=== PATIENT | female | born 1945 | race Caucasian/White ===

== ENCOUNTER 2018-01-19 03:59 | Outpatient (CLI) | payer MEDICARE, BC, SELFPAY ==
[2018-01-19 13:45] LABS: Abs Immature Grans 0.01 k/cumm (0.0-0.09); Absolute Basophil Count 0.03 k/cumm (0.0-0.2); Absolute Eosinophil Count 0.13 k/cumm (0.0-0.7); Absolute Lymphocyte Count 0.97 k/cumm (1.2-3.4); Absolute Monocyte Count 0.64 k/cumm (0.11-0.7); Absolute Neutrophil Count 2.41 k/cumm (1.2-6.7); Basophils % 0.7; Eosinophils % 3.1; HGB 11.7 g/dL (12.0-15.5); Immature Grans % 0.2; Lymphocytes % 23.2; Mean Corp. HGB Concentration 33.4 g/dL (32.0-36.0); Mean Corpuscular Hemoglobin 34.6 pg (27.0-33.0); Mean Corpuscular Volume 103.6 fL (80-95); Mean Platelet Volume 9.7 fL (8.0-11.0); Monocytes % 15.3; Neutrophils % 57.5; RBC 3.38 m/cumm (4.00-5.20); RBC Distribution Width 14.2 % (11.7-14.6); White Blood Cell Count 4.19 k/cumm (4.4-10.8)
[2018-01-19 13:59] LABS: ALT 27 U/L (12-78); AST 28 U/L (15-37); Albumin 3.3 g/dL (3.4-5.0); Alkaline Phosphatase 91 U/L (46-116); Anion Gap 7.3 mmol/L (3-11); BUN 22 mg/dL (7-18); Bilirubin, Total 2.3 mg/dL (0.2-1.0); CO2 26.7 mmol/L (21.0-32.0); CREATININE 0.89 mg/dL (0.55-1.02); Calcium 8.7 mg/dL (8.5-10.1); Chloride 107 mmol/L (98-107); Glucose 92 mg/dL (70-100); Potassium 3.8 mmol/L (3.5-5.1); Sodium 141 mmol/L (136-145); Total Protein 6.5 g/dL (6.4-8.2)
[2018-01-19 14:14] LABS: Platelet Count 105 x1000/uL (130-400)
[2018-01-20 09:38] LABS: CEA 3.4 ng/ml
== END 2018-01-19 04:00 ==
PROVIDERS: PCP Internal Medicine; Visit Provider Internal Medicine Hematology & Oncology
DX: C20 Malignant neoplasm of rectum (principal)
CPT/HCPCS: 36415; 80053; 82378; 85025

== ENCOUNTER 2018-08-18 10:33 | Outpatient (CLI) | payer MEDICARE, BC, SELFPAY ==
[2018-08-18 11:15] LABS: Abs Immature Grans 0.01 k/cumm (0.0-0.09); Absolute Basophil Count 0.03 k/cumm (0.0-0.2); Absolute Eosinophil Count 0.11 k/cumm (0.0-0.7); Absolute Lymphocyte Count 1.02 k/cumm (1.2-3.4); Absolute Monocyte Count 0.67 k/cumm (0.11-0.7); Absolute Neutrophil Count 2.24 k/cumm (1.2-6.7); Basophils % 0.7; Eosinophils % 2.7; HCT 37.3 % (36.0-46.0); HGB 12.4 g/dL (12.0-15.5); Immature Grans % 0.2; Mean Corp. HGB Concentration 33.2 g/dL (32.0-36.0); Mean Corpuscular Hemoglobin 33.8 pg (27.0-33.0); Mean Corpuscular Volume 101.6 fL (80-95); Mean Platelet Volume 9.6 fL (8.0-11.0); Monocytes % 16.4; Platelet Count 102 x1000/uL (130-400); RBC 3.67 m/cumm (4.00-5.20); RBC Distribution Width 14.9 % (11.7-14.6); White Blood Cell Count 4.08 k/cumm (4.4-10.8)
[2018-08-18 11:34] LABS: ALT 35 U/L (12-78); AST 39 U/L (15-37); Albumin 3.6 g/dL (3.4-5.0); Alkaline Phosphatase 100 U/L (46-116); Anion Gap 7.5 mmol/L (3-11); BUN 26 mg/dL (7-18); Bilirubin, Total 1.6 mg/dL (0.2-1.0); CO2 28.5 mmol/L (21.0-32.0); CREATININE 0.85 mg/dL (0.55-1.02); Calcium 9.5 mg/dL (8.5-10.1); Chloride 106 mmol/L (98-107); Glucose 96 mg/dL (70-100); Potassium 4.2 mmol/L (3.5-5.1); Sodium 142 mmol/L (136-145); Total Protein 6.9 g/dL (6.4-8.2)
[2018-08-21 10:19] LABS: CEA 3.2 ng/ml
== END 2018-08-18 10:53 ==
PROVIDERS: PCP Internal Medicine; Visit Provider Internal Medicine Hematology & Oncology
DX: C20 Malignant neoplasm of rectum (principal)
CPT/HCPCS: 36415; 80053; 82378; 85025

== ENCOUNTER 2018-10-09 16:06 | Outpatient (REF) | payer MEDICARE, BC, SELFPAY ==
[2018-10-09 20:39] LABS: BUN 25 mg/dL (7-18); CREATININE 0.89 mg/dL (0.55-1.02); Calcium 9.1 mg/dL (8.5-10.1); Chloride 107 mmol/L (98-107); Glucose 98 mg/dL (70-100); LDL CHOLESTEROL 63 mg/dL (<100); Magnesium 1.8 mg/dL (1.8-2.4); Potassium 3.8 mmol/L (3.5-5.1); Sodium 143 mmol/L (136-145); TSH 1.29 uIU/mL (0.358-3.74)
[2018-10-09 20:40] LABS: Troponin I < 0.02 ng/mL (0.00-0.06)
== END 2018-10-09 16:26 ==
LOC: NCHCN 16:06
PROVIDERS: PCP Internal Medicine; Visit Provider Internal Medicine
DX: R07.9 Chest pain, unspecified (principal); R60.9 Edema, unspecified; H93.13 Tinnitus, bilateral
CPT/HCPCS: 80048; 83721; 83735; 84443; 84484

== ENCOUNTER 2018-11-28 00:43 | Outpatient (CLI) | payer MEDICARE, BC, SELFPAY ==
[2018-11-28 09:14] LABS: Absolute Basophil Count 0.01 k/cumm (0.0-0.2); Absolute Eosinophil Count 0.04 k/cumm (0.0-0.7); Absolute Lymphocyte Count 0.46 k/cumm (1.2-3.4); Absolute Monocyte Count 0.53 k/cumm (0.11-0.7); Basophils % 0.3; Eosinophils % 1.3; HCT 34.1 % (36.0-46.0); HGB 10.9 g/dL (12.0-15.5); Lymphocytes % 14.6; Mean Corpuscular Hemoglobin 33.2 pg (27.0-33.0); Mean Platelet Volume 9.9 fL (8.0-11.0); Monocytes % 16.9; Neutrophils % 66.9; RBC 3.28 m/cumm (4.00-5.20); RBC Distribution Width 14.9 % (11.7-14.6); White Blood Cell Count 3.14 k/cumm (4.4-10.8)
[2018-11-28 09:21] LABS: ALT 48 U/L (12-78); AST 53 U/L (15-37); Albumin 3.4 g/dL (3.4-5.0); Alkaline Phosphatase 85 U/L (46-116); Anion Gap 9.9 mmol/L (3-11); BUN 22 mg/dL (7-18); Bilirubin, Total 2.9 mg/dL (0.2-1.0); CO2 24.1 mmol/L (21.0-32.0); CREATININE 0.81 mg/dL (0.55-1.02); Chloride 108 mmol/L (98-107); Glucose 88 mg/dL (70-100); Potassium 4.4 mmol/L (3.5-5.1); Sodium 142 mmol/L (136-145); Total Protein 6.3 g/dL (6.4-8.2)
[2018-11-28 09:37] LABS: Platelet Count 85 x1000/uL (130-400)
--- NOTE | 2018-11-28 09:56 | DI.CT_ITS ---
SYMPTOMS/DIAGNOSIS: RECTAL CANCER, C20 CT OF THE CHEST, ABDOMEN, AND PELVIS: Comparison is made with [id number]. CHEST CT: There is no evidence of adenopathy, pleural or pericardial effusions. There is no evidence of pulmonary nodules or infiltrates. No destructive bony lesions are seen. IMPRESSION: No evidence of metastatic disease in the chest. ABDOMEN AND PELVIC CT: There is cirrhotic appearing liver and tips are again noted. The shunt appears patent. Splenomegaly is stable. The adrenals, kidneys, pancreas, bladder and uterus are unremarkable. Anastomotic sutures are seen at the rectum. Additional anastomosis is seen in the right lower quadrant involving distal ileum. There is some soft tissue thickening in the presacral region which appears unchanged. No adenopathy is identified in the abdomen or pelvis. There is no ascites. Degenerative changes and scoliosis are noted in the spine. There is a small fatty containing umbilical hernia. The aorta is normal in diameter and shows calcification. IMPRESSION: No evidence of metastatic disease in the chest, abdomen or pelvis. Cirrhotic with intact tips.
[2018-11-28] MEDS: Omnipaque 350 MG/ML 50 ML BTL PO (09:57)
[2018-11-28] MEDS: Omnipaque 350 MG/ML 100 ML BTL IJ (09:57)
[2018-11-29 08:45] LABS: CEA 2.9 ng/ml
== END 2018-11-28 01:03 ==
PROVIDERS: PCP Internal Medicine; Visit Provider Internal Medicine Hematology & Oncology
DX: C20 Malignant neoplasm of rectum (principal); Z12.89 Encounter for screening for malignant neoplasm of other sites; K74.60 Unspecified cirrhosis of liver; R16.1 Splenomegaly, not elsewhere classified; K42.9 Umbilical hernia without obstruction or gangrene; Z98.0 Intestinal bypass and anastomosis status
CPT/HCPCS: 36415; 74177; 80053; 71260; 82378; 85025; J3490; Q9967

== ENCOUNTER 2019-01-22 10:56 | Outpatient (REF) | payer MEDICARE, BC, SELFPAY | END 2019-01-22 11:16 | LOC: NCHCN 10:56 | PROVIDERS: PCP Internal Medicine; Visit Provider Nurse Practitioner Family | DX: N39.0 Urinary tract infection, site not specified (principal) | CPT/HCPCS: 87077; 87086; 87186 ==

== ENCOUNTER 2019-03-16 09:53 | Outpatient (CLI) | payer MEDICARE, BC, SELFPAY ==
[2019-03-16 10:16] LABS: Absolute Basophil Count 0.02 k/cumm (0.0-0.2); Absolute Eosinophil Count 0.08 k/cumm (0.0-0.7); Absolute Lymphocyte Count 0.82 k/cumm (1.2-3.4); Absolute Monocyte Count 0.64 k/cumm (0.11-0.7); Absolute Neutrophil Count 2.14 k/cumm (1.2-6.7); Basophils % 0.5; Eosinophils % 2.2; HGB 11.7 g/dL (12.0-15.5); Lymphocytes % 22.2; Mean Corp. HGB Concentration 33.4 g/dL (32.0-36.0); Mean Corpuscular Hemoglobin 34.3 pg (27.0-33.0); Mean Corpuscular Volume 102.6 fL (80-95); Mean Platelet Volume 8.8 fL (8.0-11.0); Monocytes % 17.3; Neutrophils % 57.8; Platelet Count 112 x1000/uL (130-400); RBC 3.41 m/cumm (4.00-5.20); RBC Distribution Width 14.2 % (11.7-14.6)
[2019-03-16 10:43] LABS: ALT 47 U/L (14-59); AST 46 U/L (15-37); Albumin 3.6 g/dL (3.4-5.0); Alkaline Phosphatase 93 U/L (46-116); BUN 25 mg/dL (7-18); Bilirubin, Total 1.8 mg/dL (0.2-1.0); CREATININE 0.91 mg/dL (0.55-1.02); Chloride 106 mmol/L (98-107); Glucose 99 mg/dL (70-100); Potassium 3.7 mmol/L (3.5-5.1); Sodium 141 mmol/L (136-145); Total Protein 6.8 g/dL (6.4-8.2)
[2019-03-16 10:53] LABS: Calcium 9.2 mg/dL (8.5-10.1)
[2019-03-19 08:38] LABS: CEA 2.6 ng/ml
== END 2019-03-16 10:13 ==
PROVIDERS: PCP Internal Medicine; Visit Provider Internal Medicine Hematology & Oncology
DX: C20 Malignant neoplasm of rectum (principal)
CPT/HCPCS: 36415; 80053; 82378; 85025

== ENCOUNTER 2019-06-11 01:00 | Outpatient (CLI) | payer MEDICARE, BC, SELFPAY ==
[2019-06-11 08:45] LABS: Absolute Basophil Count 0.01 k/cumm (0.0-0.2); Absolute Eosinophil Count 0.07 k/cumm (0.0-0.7); Absolute Monocyte Count 0.57 k/cumm (0.11-0.7); Absolute Neutrophil Count 2.41 k/cumm (1.2-6.7); Basophils % 0.3; HCT 34.5 % (36.0-46.0); HGB 11.4 g/dL (12.0-15.5); Mean Corpuscular Hemoglobin 33.8 pg (27.0-33.0); Mean Corpuscular Volume 102.4 fL (80-95); Neutrophils % 67.7; Platelet Count 107 x1000/uL (130-400); RBC 3.37 m/cumm (4.00-5.20); RBC Distribution Width 13.6 % (11.7-14.6); White Blood Cell Count 3.56 k/cumm (4.4-10.8)
[2019-06-11 08:59] LABS: ALT 30 U/L (14-59); AST 35 U/L (15-37); Albumin 3.4 g/dL (3.4-5.0); Alkaline Phosphatase 71 U/L (46-116); Anion Gap 9.5 mmol/L (3-11); BUN 22 mg/dL (7-18); Bilirubin, Total 1.9 mg/dL (0.2-1.0); CO2 25.5 mmol/L (21.0-32.0); CREATININE 0.66 mg/dL (0.55-1.02); Chloride 108 mmol/L (98-107); Glucose 102 mg/dL (74-106); Potassium 4.1 mmol/L (3.5-5.1); Sodium 143 mmol/L (136-145); Total Protein 6.4 g/dL (6.4-8.2)
--- NOTE | 2019-06-11 09:51 | DI.CT_ITS ---
EXAM: CT CHEST/ABD/PEL W CLINICAL HISTORY: H/O RECTAL CA, RESTAGING EXAM, C20 TECHNIQUE: Imaging Protocol: Axial computed tomography images with coronal and sagittal reformatted images were created and reviewed CONTRAST MATERIAL: Intravenous: Omnipaque 350 Contrast volume:100 mL contrast route:IV - Oral: Yes COMPARISON: CT CHEST/ABD/PEL W from 11/28/2018 FINDINGS: CHEST: Tracheobronchial tree: Patent where visualized. Mediastinum and Farideh: No dominant adenopathy or fluid collection. Pulmonary parenchyma: No consolidation or dominant measurable mass. No architectural distortion. Pleura: No effusion or pneumothorax. Lymph nodes: Within normal limits. Aorta: Atherosclerosis. Heart: No cardiomegaly or pericardial effusion. Bones: Degenerative changes. ABDOMEN: Liver: Findings of a cirrhotic liver are again noted. There is a TIPS procedure again noted. No yair surable mass. Gallbladder and biliary tract: No radiodense calculus or dilation. Pancreas: Normal density, no abnormal calcifications or inflammatory process. Spleen: Calcified granuloma. Otherwise unremarkable. Kidneys: Normal size, contour and axis. No radiodense stones or obstructive uropathy. No masses seen. Adrenal glands: No masses seen. Aorta: Atherosclerosis. No aneurysm. Lymph nodes: Within normal limits. PELVIS: Bladder: Symmetric distention, no gross wall thickening. Bowel: Anastomotic sutures are seen again seen in the rectum. Bowel shows no evidence of obstruction or inflammation. Normal appendix. Peritoneal cavity: No ascites, collection or mesenteric inflammatory response. Bones: Within normal limits. Reproductive organs: Within normal limits. IMPRESSION: 1. No evidence of thoracic, abdominal or pelvic metastatic disease. 2. Stable cirrhotic liver with TIPS. 3. Stable postsurgical changes in the rectum. DATA REPOSITORY: All CT scans at this facility are submitted to the National Radiology Data Registry (NRDR) Dose Index Registry (DIR) with the [employer] (ACR). RADIATION OPTIMIZATION: All CT scans at this facility use at least one of these dose optimization te chniques: automated exposure control; mA and/or kV adjustment per patient size (includes targeted exa ms where dose is matched to clinical indication); or iterative reconstruction.
[2019-06-11] MEDS: Omnipaque 350 MG/ML 100 ML BTL IJ (10:01)
[2019-06-11] MEDS: Omnipaque 350 MG/ML 50 ML BTL PO (10:02)
[2019-06-11] MEDS: Breeza Beverage 473 ML BTL PO (10:02)
[2019-06-12 10:19] LABS: CEA 2.3 ng/mL (See Note)
== END 2019-06-11 01:20 ==
PROVIDERS: PCP Internal Medicine; Visit Provider Internal Medicine Hematology & Oncology
DX: C20 Malignant neoplasm of rectum (principal); Z12.89 Encounter for screening for malignant neoplasm of other sites; K74.60 Unspecified cirrhosis of liver; M25.562 Pain in left knee; M25.462 Effusion, left knee; M17.12 Unilateral primary osteoarthritis, left knee
CPT/HCPCS: 73562; 74177; 80053; 71260; 82378; 85025; J3490; Q9967

== ENCOUNTER 2019-06-11 08:17 | Outpatient (CLI) | payer MEDICARE, BC, SELFPAY ==
--- NOTE | 2019-06-11 10:04 | DI.RAD_ITS ---
EXAM: XR KNEE LT 3V AP,LAT,SAURABH INDICATION: KNEE JOINT PAIN LT, [id number]. COMPARISON: No exams were available for comparison TECHNIQUE: 2D digital imaging was performed. FINDINGS: There is mild periarticular spurring in all 3 joint compartments. The joint spaces are otherwise wel l maintained. The bones are intact and normally mineralized. There is a joint effusion. IMPRESSION: Mild degenerative changes of the left knee. Small joint effusion.
== END 2019-06-11 08:37 ==
PROVIDERS: PCP Internal Medicine; Visit Provider Nurse Practitioner Family
DX: M25.562 Pain in left knee (principal); M25.462 Effusion, left knee; M17.12 Unilateral primary osteoarthritis, left knee
CPT/HCPCS: 73562

== ENCOUNTER 2019-12-28 03:45 | Outpatient (CLI) | payer MEDICARE, BC, SELFPAY ==
[2019-12-28 13:38] LABS: Abs Immature Grans 0.01 k/cumm (0.0-0.09); Absolute Basophil Count 0.01 k/cumm (0.0-0.2); Absolute Lymphocyte Count 0.77 k/cumm (1.2-3.4); Absolute Monocyte Count 0.59 k/cumm (0.11-0.7); Absolute Neutrophil Count 2.95 k/cumm (1.2-6.7); Basophils % 0.2; Eosinophils % 2.3; HCT 35.8 % (36.0-46.0); HGB 11.5 g/dL (12.0-15.5); Immature Grans % 0.2 %; Lymphocytes % 17.4; Mean Corp. HGB Concentration 32.1 g/dL (32.0-36.0); Mean Corpuscular Hemoglobin 32.6 pg (27.0-33.0); Mean Corpuscular Volume 101.4 fL (80-95); Mean Platelet Volume 9.4 fL (8.0-11.0); Monocytes % 13.3; Neutrophils % 66.6; Platelet Count 102 x1000/uL (130-400); RBC 3.53 m/cumm (4.00-5.20); RBC Distribution Width 14.3 % (11.7-14.6); White Blood Cell Count 4.43 k/cumm (4.4-10.8)
[2019-12-28 13:49] LABS: Hemoglobin A1C 4.7 % (3.8-5.6)
[2019-12-28 13:57] LABS: ALT 40 U/L (14-59); AST 34 U/L (15-37); Albumin 3.6 g/dL (3.4-5.0); Alkaline Phosphatase 85 U/L (46-116); Anion Gap 10.4 mmol/L (3-11); BUN 24 mg/dL (7-18); Bilirubin, Total 1.8 mg/dL (0.2-1.0); CO2 24.6 mmol/L (21.0-32.0); CREATININE 0.75 mg/dL (0.55-1.02); Calcium 9.2 mg/dL (8.5-10.1); Chloride 108 mmol/L (98-107); Glucose 104 mg/dL (74-106); Potassium 3.7 mmol/L (3.5-5.1); Sodium 143 mmol/L (136-145); Total Protein 6.5 g/dL (6.4-8.2)
[2019-12-28 15:13] LABS: TSH 1.52 uIU/mL (0.36-3.74); Vitamin B12 458 pg/mL (193-986)
[2019-12-31 10:08] LABS: CEA 2.1 ng/mL (See Note)
[2019-12-31 12:45] LABS: Albumin 64.1 % (55.8-66.1)
== END 2019-12-28 04:05 ==
PROVIDERS: PCP Internal Medicine; Visit Provider Internal Medicine Hematology & Oncology
DX: G90.09 Other idiopathic peripheral autonomic neuropathy (principal); C20 Malignant neoplasm of rectum
CPT/HCPCS: 36415; 80053; 82378; 82607; 83036; 84165; 84443; 85025

== ENCOUNTER 2020-06-20 10:15 | Outpatient (REF) | payer MEDICARE, BC, SELFPAY ==
[2020-06-21 19:31] LABS: COVID-19 RT-PCR Result NEGATIVE (Negative)
== END 2020-06-20 10:35 ==
LOC: NCHCN 10:15
PROVIDERS: PCP Internal Medicine; Visit Provider Internal Medicine
DX: R05 Cough (principal); R06.02 Shortness of breath
CPT/HCPCS: U0003

== ENCOUNTER 2020-06-25 01:06 | Outpatient (CLI) | payer MEDICARE, BC, SELFPAY ==
--- NOTE | 2020-06-25 08:30 | DI.CT_ITS ---
EXAM: CT CHEST/ABD/PEL W CLINICAL HISTORY: RECTAL CA,C20,RESTAGING EXAM. TECHNIQUE: Imaging Protocol: Axial computed tomography images with coronal and sagittal reformatted images were created and reviewed CONTRAST MATERIAL: Intravenous: Omnipaque 350 Contrast volume:100 ml Oral: Yes. Oral contrast was administered for bowel opacification. COMPARISON: CT CT CHEST/ABD/PEL W from 06/11/2019 FINDINGS: CHEST: LUNGS: There is an unchanged 2 millimeter subpleural nodule in the right lower lobe (series 4/image 3 6). No new right lung nodules.. In the opposite-left lung there is a benign-appearing 2 millimeter subpleural nodule in the sub apical upper lobe region which is also unchanged. There are no new sign ificant left lung nodules. No infiltrates. No pleural effusions. There are no significant new find ings in trachea and mainstem bronchi. MEDIASTINUM: There is no hilar nor mediastinal adenopathy. Visualized thyroid unremarkable. CARDIAC: Heart size is normal. There is no pericardial effusion.Caliber of the thoracic aorta is wit hin normal limits. OSSEOUS: No significant osseous lesions.. ABDOMEN: There is no ascites. LIVER: There is a TIPS again noted, unchanged in position. Extending from the portal vein to the IVC . It appears patent. Liver again appears somewhat cirrhotic but there are no discrete focal hepatic lesions identified. No dilatation of intrahepatic ducts. GALLBLADDER/BILIARY: No obvious new gallbladder pathology. CBD is not dilated. PANCREAS: No evidence of pancreatic mass nor dilatation of the pancreatic duct. SPLEEN: Spleen is again noted be enlarged, unchanged. Calcified splenic granulomas are again noted. No ominous intrasplenic masses. The splenic vein is patent and unchanged in diameter. Portal vein is patent. ADRENALS: There are no new significant adrenal masses. KIDNEYS: No calculi nor hydronephrosis. No solid renal masses. No cysts evident. ABDOMINAL AORTA: Abdominal aorta is not enlarged and there is no udcayqqoqsqlvmb-kfka-bohaut adenopat hy. ABDOMINAL WALL/GI: There is anterior abdominal wall midline umbilical fat containing hernia. No sharlene l loops within the hernia. No bowel obstruction. PELVIS: LYMPH NODES: There is no intrapelvic nor inguinal adenopathy. GI: Again noted is evidence of previous surgery in the rectum. No evidence of abnormality at this le liberty/level of the anastomosis. No significant diverticular disease. No evidence of appendicitis.No e vidence of sigmoid diverticulitis. URINARY BLADDER: No calculi nor masses evident REPRODUCTIVE: Uterus and adnexal regions appear age-appropriate. No free fluid. OSSEOUS: No significant osseous lesions. IMPRESSION: 1. Again noted is evidence of previous rectal surgery. There is no evidence of new metastatic diseas e in the chest, abdomen, and pelvis. No lymphadenopathy evident. Also no new osseous lesions seen. 2. Again noted is TIPS stent which appears patent. There is no ascites. 3. Somewhat cirrhotic appearing liver and there is also mild splenomegaly again noted. No varices ev ident 4. RADIATION DOSE DELIVERED: 1,542.73mGy.cm Total DLP DATA REPOSITORY: All CT scans at this facility are submitted to the National Radiology Data Registry (NRDR) Dose Index Registry (DIR) with the [employer] (ACR). RADIATION OPTIMIZATION: All CT scans at this facility use at least one of these dose optimization te chniques: automated exposure control; mA and/or kV adjustment per patient size (includes targeted exa ms where dose is matched to clinical indication); or iterative reconstruction.
[2020-06-25] MEDS: Breeza Beverage 473 ML BTL PO (08:36)
[2020-06-25] MEDS: Omnipaque 350 MG/ML 50 ML BTL IJ (08:37)
[2020-06-25] MEDS: Omnipaque 350 MG/ML 100 ML BTL IJ (09:27)
[2020-06-25] MEDS: Normal Saline - Diluent 50 ML VIAL IV (09:28)
== END 2020-06-25 01:26 ==
PROVIDERS: PCP Internal Medicine; Visit Provider Nurse Practitioner Adult Health
DX: C20 Malignant neoplasm of rectum (principal); R16.1 Splenomegaly, not elsewhere classified
CPT/HCPCS: 74177; 71260; J3490; Q9967

== ENCOUNTER 2020-07-18 01:30 | Outpatient (CLI) | payer MEDICARE, BC, SELFPAY ==
[2020-07-18 12:30] LABS: Abs Immature Grans 0.01 10^3/uL (0.0-0.06); Absolute Basophil Count 0.03 10^3/uL (0.0-0.2); Absolute Eosinophil Count 0.15 10^3/uL (0.0-0.7); Absolute Lymphocyte Count 1.12 10^3/uL (1.2-3.4); Absolute Monocyte Count 0.61 10^3/uL (0.1-0.8); Absolute Neutrophil Count 2.71 10^3/uL (1.2-6.7); Basophils % 0.6; Eosinophils % 3.2; HCT 36.1 % (36.0-46.0); HGB 11.8 g/dL (11.2-15.7); Immature Grans % 0.2; Lymphocytes % 24.2; MCH 33.1 pg (27.0-33.0); MCHC 32.7 % (32.0-36.0); MCV 101.4 fL (80-95); MPV 9.5 fL (8.0-11.0); Monocytes % 13.2; Neutrophils % 58.6; Nucleated RBC 0 %; RBC 3.56 10^6/uL (3.93-5.22); RDW 14.2 % (11.7-14.6); RDW-SD 53.5 fL; WBC 4.63 10^3/uL (4.4-10.8)
[2020-07-18 12:41] LABS: ALT 31 U/L (14-59); AST 30 U/L (15-37); Albumin 3.6 g/dL (3.4-5.0); Alkaline Phosphatase 78 U/L (46-116); Anion Gap 8.9 mmol/L (3-11); BUN 22 mg/dL (7-18); Bilirubin, Total 1.8 mg/dL (0.2-1.0); CO2 26.1 mmol/L (21.0-32.0); CREATININE 0.9 mg/dL (0.55-1.02); Calcium 9.4 mg/dL (8.5-10.1); Chloride 108 mmol/L (98-107); Glucose 100 mg/dL (74-106); Potassium 4.2 mmol/L (3.5-5.1); Sodium 143 mmol/L (136-145); Total Protein 6.4 g/dL (6.4-8.2)
[2020-07-18 12:45] LABS: Platelet Count 104 10^3/uL (130-400)
[2020-07-18 12:46] LABS: Diff Comment Diff Reviewed; Macrocytosis 1+
[2020-07-18 22:11] LABS: CEA 2.9 ng/mL (See Note)
== END 2020-07-18 01:31 | disposition home or self-care (01) ==
LOC: LBO 01:30
PROVIDERS: PCP Internal Medicine; Visit Provider Internal Medicine Hematology & Oncology
DX: C20 Malignant neoplasm of rectum (principal)
CPT/HCPCS: 36415; 80053; 82378; 85025

== ENCOUNTER 2021-03-02 14:59 | Outpatient (REF) | payer MEDICARE, BC, SELFPAY ==
[2021-03-04 17:15] LABS: COVID-19 RT-PCR UVMMC Result Negative (Negative)
== END 2021-03-02 15:00 | disposition home or self-care (01) ==
LOC: NCHCN 14:59
PROVIDERS: PCP Internal Medicine; Referring Provider Internal Medicine; Visit Provider Internal Medicine
DX: Z20.822 Contact with and (suspected) exposure to COVID-19 (principal)
CPT/HCPCS: U0003

== ENCOUNTER 2021-10-15 21:31 | Outpatient (REF) | payer MEDICARE, BC, SELFPAY ==
--- OUTSIDE RECORDS SUMMARY | 2021-10-15 21:35 | XMS_ITS ---
:1945 Author Care Team Providers Name Role Phone ROBLES LOERA MD Primary Care Provider [phone] Allergies Code Code System Name Reaction Severity Status Onset NKDA ? Medications Name Status Start Date Stop Date ? ? atorvastatin 10 mg tablet Active ? Not av ailable diltiazem ER 120 mg capsule,extended release 12 hr Active ? Not available TAKE ONE CAPSULE BY MOUTH EVERY DAY furosemide 20 mg tablet Active ? Not avai lable TAKE TWO TABLETS BY MOUTH EVERY OTHER DAY. MAY USE DAILY NEE DED hydrocodone 5 mg-acetaminophen 325 mg tablet Active ? Not available Take 1 tablet every 24 hours by oral route as needed. metoprolol succinate ER 50 mg tablet,extended release 24 hr Acti ve ? Not available TAKE ONE TABLET BY MOUTH EVERY DAY REPLACES DILTIAZEM spironolactone 50 mg tablet Active ? Not available TAKE 1 TABLET BY MOUTH ONCE DAILY Problems Name Status Onset Date Source ? Chronic Hepatitis C Active 06/18/2019 ? 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 Procedures Date Name Performed by ? 06/13/2015 Bowel Resection Large Information not av ailable 06/13/1981 Section Information not avai lable 06/13/1975 Excision of Ectopic Ovarian In formation not available 10/20/2018 US, Echocardiogram [facility] [address] [place] [address] (Work Place) 06/18/2019 XR, Knee, Weightbearing [facility] (Internal) [address] [id number] (Work Place) 04/16/2021 XR, Knee, 3 View [facility] ([facility]) [address] [id number] (Work Place) 04/27/2021 XR, Knee, 3 View [facility] (Internal) [address] [place] [address] (Work Place) 05/20/2021 XR, Knee, 4 or More View [facility] ospital Radiology (Internal) [address] [place] [address] (Work Place) 06/11/2021 XR, Knee, 4 or More View [facility] (Internal) [address] [place] [address] (Work Place) 07/16/2021 XR, Knee, 4 or More View [facility] ospital Radiology (Internal) [address] [place] [address] (Work Place) Results Lab Results Date Name Specimen Result Interpretation Description Value Range Status Address ? 06/24/2020 CBC W/ BLD Low Wbc 3.7 10*3/uL 5.0-10.0 Final [place] Auto Diff 10*3/uL [facility] (Internal) : [address] ? ? BLD Low Rbc 3.65 4.10-5.30 Final [place] 10*6/uL 10*6/uL [facility] (Internal) : [address] t ? ? BLD ? Hgb 12.1 g/dL 12.0-16.0 Final Nort h g/dL [facility] L ab (Internal) : [address] t ? ? BLD ? Hct 37.3 % 37.0-47.0 Final [facility] L ab (Internal) : [address] t ? ? BLD High Mcv 102.2 fL 80.0-96.0 Final [facility] L ab (Internal) : [address] ? ? BLD High Mch 33.2 pg 26.0-32.0 Final [place] pg [facility] L ab (Internal) : [address] t ? ? BLD ? Mchc 32.4 g/dL 31.0-35.0 Final Nort h g/dL [facility] L ab (Internal) : [address] t ? ? BLD ? Rdw 13.9 % 11.5-14.5 Final [facility] L ab (Internal) : [address] ? ? BLD Low Plt 81 10*3/uL 130-450 Final [facility] 10*3/uL [facility] : [address] t 06/24/2020 CMP, Serum S ? g/r 101 mg/dL 74-106 Final [place] or Plasma mg/dL [facility] ([facility] : [address] ? ? S High Bun 20 mg/dL 7-17 Final [place] mg/dL [facility] ([facility]) : [address] t ? ? S ? Crea 0.60 mg/dL 0.52-1.04 Final [facility] mg/dL [facility] ([facility]) : [address] t ? ? S ? Ca 9.2 mg/dL 8.4-10.2 Final [place] mg/dL [facility] ([facility]) : [address] t ? ? S ? Na 141 mmol/L 137-145 Final [place] mmol/L [facility] (Internal) : [address] t ? ? S ? K 3.6 mmol/L 3.5-5.1 Final [place] mmol/L [facility] ([facility]) : [address] t ? ? S High Cl 109 mmol/L 98-107 Final [place] mmol/L [facility] L [facility] (Internal) : [address] t ? ? S ? Tco2 25.0 mmol/L 22.0-30.0 Final No rth mmol/L [facility] (Internal) : [address] ? ? S Low Tp 6.2 g/dL 6.3-8.2 Final [place] g/dL [facility] (Internal) : [address] t ? ? S ? Alb 3.6 g/dL 3.5-5.0 Final [facility] g/dL [facility] (Internal) : [address] t ? ? S High Tbil 1.4 mg/dL 0.2-1.3 Final [place] mg/dL [facility] (Internal) : [address] ? ? S ? Alp 88 U/L 38-126 Final [place] U/L [facility] (Internal) : [address] t ? ? S ? Alt 45 U/L 9-52 U/L Final [place] (Sgpt) [facility] L [facility] (Internal) : [address] ? ? S High Ast 48 U/L 14-36 U/L Final [place] (Sgot) [facility] L [facility] (Internal) : [address] 06/24/2020 Troponin S ? Trop <0.06 NG/mL 0.00-0.06 Fin al [place] I, Serum NG/mL [facility] Lab (Internal) : [address] 06/24/2020 Differenti BLD ? Polys 55 % 40-75 % Final N orth al, Country [facility], Hospital Lab Blood (Internal) : [address] ? ? BLD ? Bands 1 % 0-5 % Final [facility] (Internal) : [address] t ? ? BLD ? Lymphs 34 % 20-50 % Final [facility] (Internal) : [address] t ? ? BLD ? [place] 5 % 2-10 % Final [facility] (Internal) : [address] t ? ? BLD ? Eos 4 % 0-6 % Final [facility] (Internal) : [address] t ? ? BLD ? Baso 1 % 0-1 % Final [facility] (Internal) : [address] t ? ? BLD ? Atyp 0 % ? Final [facility] Hospital L ab (Internal) : [address] t ? ? BLD ABNORMAL Plts, low adequate Final [facility] L ab (Internal) : [address] t ? ? BLD ABNORMAL RBC abnormal normal Final [place] Morpholog [facility] L ab (Internal) : [address] t ? ? BLD ? Macro small ? Final [facility] (Internal) : [address] t ? ? BLD ? Oval occasional ? Final [facility] (Internal) : [address] 06/24/2020 Neutrophil BLD ? Anc-manu 2.08 ? Final [place] Count, al 10*3/uL [facility] (Anc), (Internal) : Blood [address] 06/24/2020 Nlr-manual BLD ? Nlr - 1.65 0.00-3.20 Final [place] Manual [facility] (Internal) : [address] 06/24/2020 TSH, Serum S ? Tsh 3.60 0.47-4.68 Final [place] or Plasma u[IU]/mL u[IU]/mL [facility] L [facility] (Internal) : [address] [facility] 06/24/2020 D-dimer, PLASMA ? Dimq 0.42 mg/L 0.00-0.50 Final [place] Quant, mg/L [facility] (Internal[facility] : [address] [facility] [facility] [place] 06/24/2020 BNP S High Nt-probn 131 pg/mL 0-125 Final [place] (B-type p pg/mL [facility] c (Internal) : Peptide), Griffin delgado Prohormone , Valery khan N-terminal , Quant, Immunoassa y, Blood 06/24/2020 Magnesium, S ? mg 1.7 mg/dL 1.6-2.3 Final [place] QN, Serum mg/dL [facility] Lab (Internal) : [address] 06/24/2020 EKG Done ? No ? ? ? Nort h by ED [facility] on Hospital L ab recorded. (Career Resource Technician al): [address] 06/24/2020 EKG Done ? No ? ? ? Nort h by ED [facility] on Hospital L ab recorded. (Career Resource Technician al): [address] [facility] [place] [place] Past Encounters 07/16/2021 Closed Fracture of Left Tibial Plateau WYATT VegaC: [address] [facility], [facility] [address], [place] [address], Ph. 06/11/2021 Fracture of Tibial Plateau Ashley Cobian PA-C: [address] [facility], [address], [place] [address], Ph. 05/20/2021 Fracture of Tibial Plateau Ashley Cobian PA-C: [address] [facility], [address] [address], Ph. 04/27/2021 Fracture of Tibial Plateau Ashley Cobian PA-C: [address] [address], Ph. 04/16/2021 Fracture of Tibial Plateau Ashley Cobian PA-C: [address] [address], Ph. 04/08/2021 Fracture of Tibial Plateau Ashley Cobian PA-C: [address] [address], Ph. Social History Tobacco Smoking Status Former Smoker Vaccine List Vaccine Type COVID-19, mRNA, LNP-S, PF, 100 mcg/0.5 m L dose (Moderna) 08/12/2020?0.5 mL 09/08/2020?100 mcg Plan of Care Reminders Provider Appointments None ? ? recorded. Lab None ? ? recorded. Referral None ? ? recorded. Procedures None ? ? recorded. Surgeries None ? ? recorded. Imaging None ? ? recorded. Vitals Height Weight BMI 170.18 cm 79.38 kg 27.4 kg/m2
== END 2021-10-15 21:32 | disposition home or self-care (01) ==
LOC: NCHCN 21:31
PROVIDERS: PCP Internal Medicine; Visit Provider Internal Medicine
DX: R39.89 Other symptoms and signs involving the genitourinary system (principal)
CPT/HCPCS: 87077; 87086; 87186

== ENCOUNTER → 2022-05-04 00:58 | Outpatient (CLI) | payer MEDICARE, BC, SELFPAY ==
--- NOTE | 2022-05-04 09:15 | DI.NM_ITS ---
APPROVED REPORT Exam: Pharmacologic Patient Location: Out-Patient Room/Bed: Stress Nurse: Cristiana Wilcox RN Ordering Provider:MANDO ALCARAZ, Contact Number: BMI: 26.62 Baseline Rhythm: Sinus Rhythm Indications: Chest pain Medical History Medical History: Hx Afib, hx tobacco use, sciatica Cardiac Medications: Spironolactone, aspirin, furosemide, nasal spray, gabapentin, nitroglycerin, oxy codone/tylenol Allergies: NKA Cardiac Risk Factors: Former smoker, family hx Previous Cardiac Procedures: None Pretest Chest Pain Characteristics: None Exercise History: Sedentary Physical Disabilities: Sciatica Lung Sounds: Clear to auscultation Heart Sounds: Regular Stress Test Details Test: Pharmacologic stress was paired with low level exercise. Reason for pharmacologic stress test: physical limitation. Nuclear Acquisition: Rest Tc-99m/Stress Tc-99m 1 day Rest Isotope: Tc-99m Sestamibi. Dose: 9.0 Date: 05/04/2022 Injection Time: 1100 Stress Isotope: Tc-99m Sestamibi. Dose: 30.0 Date: 05/04/2022 Injection Time: 1300 HR Resting HR Supine: 73 bpm Max Heart Rate (APMHR): 144.831918 bpm Resting HR Standin bpm Target HR (85% APMHR): 122.291776 bpm Max HR Achieved: 117 bpm % of APMHR: 81.25 Recovery HR: 88 bpm BP Resting BP Supine: 148/66 mmHg Resting BP Standin/70 mmHg Max BP: 154/62 mmHg Recovery BP: 142/58 mmHg ECG Resting ECG: Sinus Rhythm Ectopy: Occasional PACs Stress ECG: Sinus Tachycardia ST Change: No significant ST segment changes noted Arrhythmia: Occasional PACs, rare PVC Recovery ECG: Sinus Rhythm Recovery ST Change: No significant ST segment changes noted Recovery Arrhythmia: Occasional PACs Clinical Exercise capacity: 1.38 METs Rate Pressure Product: 52831 Stress ECG Conclusion 1. Electrocardiogram was within normal limits 2. Patient underwent testing using a combination of low-level exercise and pharmacologic stress with regadenoson 3. Peak heart rate achieved was 81% of predicted for age 4. The electrocardiographic portion of the test was nondiagnostic due to inadequate heart rate 5. No significant dysrhythmia 6. See MPI report MPI Conclusion Myocardial perfusion is normal without evidence of ischemia or prior infarction EF 68%, normal wall motion Radiologist Interpretation Radiologist Interpretation by: Kory Patten MD Interpretation Date/Time: 05/04/2022 16:39:29
[2022-05-04] MEDS: Regadenoson 0.4 MG/5 ML SYR IVP (12:50)
== END ==
PROVIDERS: PCP Internal Medicine; Visit Provider Physician Assistant
DX: R07.9 Chest pain, unspecified (principal)
CPT/HCPCS: 78452; 93016; 93018; 93017; J2785

== ENCOUNTER 2022-07-01 11:05 | Outpatient (CLI) | payer MEDICARE, BC, SELFPAY ==
[2022-07-01 11:28] VITALS: BP 165/70; PULSE 71; RESP 20; TEMP 37.1; O2SAT 99
--- NOTE | 2022-07-01 12:19 | DI.RAD_ITS ---
Exam(s) XR PAIN CLINIC LUMBAR SP 2V EXAM: XR PAIN CLINIC LUMBAR SP 2V CLINICAL HISTORY: Dx:Lumbar Radiculopathy TECHNIQUE: 2D and realtime digital imaging was performed. Radiologist not present. CONTRAST MATERIAL: None. COMPARISON: No exams were available for comparison FINDINGS: Fluoroscopy was provided for pain management therapy. Please refer to procedure report or details. Radiation Exposure Index: Ka,r=5.34 mGy IMPRESSION: As above. RADIATION DOSE DELIVERED:
--- NOTE | 2022-07-01 12:28 | PDOC.PAIN ---
Date of service: 07/01/22 Time of Service: 12:00 Pain Clinic Procedure Note Procedure Note Procedure Note: Lumbar Epidural Steroid Injection Procedure Note COMMENTS: She was evaluated by Dr. Storm at [facility]. She has low back pain radiating down the leg. Pre-procedure pain VAS was 10/10. Dx: Lumbosacral radiculopath Margi Quiles has been referred to the Pain Management Center for lumbar epidural steroid injection. The patient was greeted by the nurse who verified patients name and . Patient was then taken to the fluoroscopy suite. The patient was interviewed and the medial record reviewed. There were no medical, pharmacologic, radiographic, or other structural contraindications to attempting fluoroscopically guided lumbar epidural steroid injection. Risks and expected side effects as well as potential benefits of the procedure were reviewed and voiced concerns expressed. The patient consent form was signed and witnessed. Standard patient time-out procedure was performed. The patient was placed in the prone position on the fluoroscopy table and automated blood pressure cuff and pulse oximeter applied. The skin entry point for entering/approaching the epidural space at L5-S1 and marked. Following thorough chlorhexadine preparation of the skin and draping and 1% lidocaine infiltration of the skin entry point and subcutaneous tissues, a 18 gauge Touhy needle was placed under fluoroscopic guidance and with loss of resistance technique into the epidural space. Needle tip placement and depth were aided and confirmed by fluoroscopy. There was no paresthesia or return of blood or CSF through the needle. 1 cc's of Omnipaque 240 was injected with clear epidural spread confirmed with fluoroscopy. 80mg depomedrol was injected. There was not any unusual discomfort expressed by Margi Quiles. Patient's vital signs were stable throughout the procedure and were as recorded in nursing records. Follow up plans and appointments were discussed with patient. Post procedure instruction was given as documented in nursing records and having met discharge criteria and was discharged from the Pain Management Center. COMMENTS: If this procedure is helpful, it can be completed up to 3 times per 12 months. Post-procedure pain VAS was 7/10 Nikita Dickerson DO, MPH [facility]-Pain Management [facility]-Center for [facility] Management
[2022-07-01 12:39] VITALS: BP 166/64; PULSE 85; RESP 13; O2SAT 100
[2022-07-01] MEDS: methylPREDNISolone ACETATE 80 MG/ML VIAL IJ (12:40)
[2022-07-01] MEDS: Omnipaque 240 MG/ML 50 ML BTL IJ (12:40)
== END 2022-07-01 11:06 | disposition home or self-care (01) ==
LOC: PC 11:05
PROVIDERS: PCP Internal Medicine; Visit Provider Preventive Medicine Occupational Medicine
DX: M54.17 Radiculopathy, lumbosacral region (principal); M54.50 Low back pain, unspecified
CPT/HCPCS: 62323; 72100; J1040; Q9967

== ENCOUNTER 2022-07-30 14:39 | Outpatient (REF) | payer MEDICARE, BC, SELFPAY ==
[2022-07-30 19:08] LABS: ALT 38 U/L (14-59); AST 42 U/L (15-37); Albumin 4.2 g/dL (3.4-5.0); Alkaline Phosphatase 81 U/L (46-116); Anion Gap 7.7 mmol/L (3-11); BUN 24 mg/dL (7-18); Bilirubin, Total 2.3 mg/dL (0.2-1.0); CO2 27.3 mmol/L (21.0-32.0); CREATININE 1.1 mg/dL (0.55-1.02); Calcium 9.8 mg/dL (8.5-10.1); Chloride 107 mmol/L (98-107); Estimated GFR 52.08 (mL/min/1.73m2); Glucose 98 mg/dL (74-106); Potassium 5.1 mmol/L (3.5-5.1); Sodium 142 mmol/L (136-145); TSH 1.14 uIU/mL (0.36-3.74); Total Protein 6.8 g/dL (6.4-8.2)
[2022-07-30 19:26] LABS: HCT 39.5 % (36.0-46.0); HGB 12.8 g/dL (11.2-15.7); MCH 33.9 pg (27.0-33.0); MCHC 32.4 % (32.0-36.0); MCV 105 fL (80-95); MPV 10.6 fL (8.0-11.0); Platelet Count 109 10^3/uL (130-400); RBC 3.78 10^6/uL (3.93-5.22); RDW 15.1 % (11.7-14.6); RDW-SD 58.1 fL; WBC 4.01 10^3/uL (4.4-10.8)
[2022-08-02 10:37] LABS: CEA 3.7 ng/mL (See Note)
== END 2022-07-30 14:40 | disposition home or self-care (01) ==
LOC: NCHCN 14:39
PROVIDERS: PCP Internal Medicine; Visit Provider Internal Medicine
DX: I48.0 Paroxysmal atrial fibrillation (principal); C19 Malignant neoplasm of rectosigmoid junction
CPT/HCPCS: 80053; 85027; 82378; 84443

== ENCOUNTER 2022-12-01 09:12 | Outpatient (CLI) | payer MEDICARE, BC, SELFPAY ==
[2022-12-01 09:22] VITALS: BP 143/64; PULSE 67; RESP 20; TEMP 36.9; O2SAT 99
--- NOTE | 2022-12-01 09:44 | PDOC.PAIN_ITS ---
Date of service: 12/01/22 Time of Service: 10:10 Pain Managment Procedure Note Procedure Note Procedure Note: PROCEDURE NOTE LUMBAR EPIDURAL STEROID INJECTION Date of Service: December 01, 2022 Patient:Margi Lowry? Provider: Nikita Dickerson DO, MPH Margi Quiles has been referred to the [facility] for a lumbar epidural steroid injection. Pre-operative diagnosis: Lumbosacral Radiculopathy Post-operative diagnosis: Same Pre-Procedure Pain: VAS= 6 /10 Comments: She had this procedure on 07/01/22 and had >3 months of >50% pain improvement. She is doing a home exercise program currently. Margi was interviewed and the medical record was reviewed.? There were no medical, pharmacologic, radiographic or other structural contraindications to attempting fluoroscopically guided Lumbar epidural steroid injection.? Risks, potential side effects, indications, and potential benefits of the procedure were reviewed with Margi.? Questions and concerns were addressed.? After it was clear that Margi was fully informed about the procedure, the printed consent f orm was signed by the patient and myself.? Margi was placed in the prone position on the fluoroscopy table and automated blood pressure cuff and pulse oximeter applied. The skin entry point for en tering/approaching the epidural space for the lumbar epidural steroid injection was marked. Following thorough chlorhexadine preparation of the skin and draping and 1% lidocaine infiltration of the skin entry point and subcutaneous tissues, an 18 gauge Touhy needle was placed and advanced under fluoroscopic guidance and with loss of resistance technique into the L5-S1 epidural space. Needle tip placement and depth were aided and confirmed by fluoroscopy. There was no paresthesia or return of blood or CSF through the needle. 1 mls of Omnipaque 240 was injected with clear epidural spread confirmed with fluoroscopy. 80 mg of Depo-Medrol was? injected. This was followed by 1 ml of preservative-free normal saline to flush the steroid out of the needle. There was not any unusual discomfort expressed by Margi and the needle was removed. (49 mls of Omnipaque was wasted) Margi's vital signs were stable throughout the procedure and were as recorded in nursing records. Follow up plans and appointments were discussed with Margi. Post procedure instruction was given as documented in nursing records and having met discharge criteria Margi was discharged from the [facility]. COMMENTS: Post-procedure pain: VAS= 6/10. If the patient receives at least 50% improvement in pain and/or function for at least 3 months, this procedure can be repeated. I personally performed this entire procedure. NIKITA DICKERSON DO, MPH ABPMR-subspecialty board certification in Pain Medicine [facility]
[2022-12-01 09:55] VITALS: BP 153/78; PULSE 79; RESP 18; O2SAT 100
--- NOTE | 2022-12-01 10:02 | DI.RAD_ITS ---
Exam(s) XR PAIN CLINIC LUMBAR SP 2V EXAM: XR PAIN CLINIC LUMBAR SP 2V CLINICAL HISTORY: Dx: Lumbar Radiculopathy TECHNIQUE: 2D and realtime digital imaging was performed. CONTRAST MATERIAL: Refer to procedure report. COMPARISON: No exams were available for comparison FINDINGS: Fluoroscopy was provided for Dr. Dickerson during the performance of a lumbar epidural steroid injection. Please refer to the procedure report for complete details. Ka,r=6.05 mGy IMPRESSION:
[2022-12-01] MEDS: Omnipaque 240 MG/ML 50 ML BTL IJ (11:22)
[2022-12-01] MEDS: methylPREDNISolone ACETATE 80 MG/ML VIAL IJ (11:23)
== END 2022-12-01 09:13 | disposition home or self-care (01) ==
LOC: PC 09:12
PROVIDERS: PCP Internal Medicine; Visit Provider Preventive Medicine Occupational Medicine
DX: M54.17 Radiculopathy, lumbosacral region (principal); M54.50 Low back pain, unspecified
CPT/HCPCS: 62323; 72100; J1040; Q9967

== ENCOUNTER 2023-06-09 15:48 | Outpatient (REF) | payer MEDICARE, BC, SELFPAY ==
[2023-06-09 18:41] LABS: HCT 34.6 % (36.0-46.0); HGB 11.4 g/dL (11.2-15.7); MCH 33.5 pg (27.0-33.0); MCHC 32.9 % (32.0-36.0); MCV 102 fL (80-95); MPV 10.6 fL (8.0-11.0); Platelet Count 130 10^3/uL (130-400); RDW 14.3 % (11.7-14.6); RDW-SD 53.6 fL; WBC 4.29 10^3/uL (4.4-10.8)
[2023-06-09 19:01] LABS: Hemoglobin A1C 4.8 % (<5.7)
[2023-06-09 19:18] LABS: ALT 34 U/L (14-59); AST 34 U/L (15-37); Albumin 3.5 g/dL (3.4-5.0); Alkaline Phosphatase 81 U/L (46-116); Anion Gap 6.8 mmol/L (3-11); BUN 27 mg/dL (7-18); Bilirubin, Total 1.5 mg/dL (0.2-1.0); CO2 27.2 mmol/L (21.0-32.0); CREATININE 1.1 mg/dL (0.55-1.02); Calcium 9.1 mg/dL (8.5-10.1); Chloride 107 mmol/L (98-107); Estimated GFR 51.75 (mL/min/1.73m2); Glucose 99 mg/dL (74-106); Potassium 4.4 mmol/L (3.5-5.1); Sodium 141 mmol/L (136-145); Total Protein 6.5 g/dL (6.4-8.2); Vitamin B12 683 pg/mL (193-986)
== END 2023-06-09 15:49 | disposition home or self-care (01) ==
LOC: NCHCN 15:48
PROVIDERS: PCP Internal Medicine; Visit Provider Internal Medicine
DX: G60.9 Hereditary and idiopathic neuropathy, unspecified (principal); R79.89 Other specified abnormal findings of blood chemistry
CPT/HCPCS: 80053; 85027; 82607; 83036

== ENCOUNTER 2023-08-24 19:28 | Outpatient (REF) | payer MEDICARE, BC, SELFPAY ==
[2023-08-24 19:52] LABS: Bilirubin Negative (Negative); Blood Trace-intact (Negative); Clarity Cloudy (Clear); Glucose Negative (Negative); Ketones Negative (Negative); Leukocyte Esterase Large (Negative); Nitrite Negative (Negative); Specific Gravity 1.025 (1.005-1.025); pH 6.5 (5-8)
[2023-08-24 19:58] LABS: Bacteria Many HPF (Negative); C & S Indicated? Yes; WBC >50 HPF (0-5)
== END 2023-08-24 19:29 | disposition home or self-care (01) ==
LOC: NCHCN 19:28
PROVIDERS: PCP Internal Medicine; Visit Provider Nurse Practitioner Family
DX: R30.0 Dysuria (principal); R82.89 Other abnormal findings on cytological and histological examination of urine
CPT/HCPCS: 87077; 81003; 81015; 87086; 87186

== ENCOUNTER 2023-09-07 12:53 | Outpatient (REF) | payer MEDICARE, BC, SELFPAY ==
[2023-09-07 20:31] LABS: HCT 35.9 % (36.0-46.0); HGB 11.8 g/dL (11.2-15.7); MCH 34.4 pg (27.0-33.0); MCHC 32.9 % (32.0-36.0); MCV 105 fL (80-95); Platelet Count 109 10^3/uL (130-400); RBC 3.43 10^6/uL (3.93-5.22); RDW 14.3 % (11.7-14.6); RDW-SD 55.8 fL; WBC 4.29 10^3/uL (4.4-10.8)
[2023-09-07 20:58] LABS: ALT 34 U/L (14-59); AST 38 U/L (15-37); Albumin 3.6 g/dL (3.4-5.0); Alkaline Phosphatase 92 U/L (46-116); Anion Gap 9.2 mmol/L (3-11); BUN 27 mg/dL (7-18); Bilirubin, Total 2.2 mg/dL (0.2-1.0); CO2 23.8 mmol/L (21.0-32.0); CREATININE 0.9 mg/dL (0.55-1.02); Chloride 105 mmol/L (98-107); Estimated GFR 65.84 (mL/min/1.73m2); Glucose 97 mg/dL (74-106); Magnesium 1.7 mg/dL (1.8-2.4); Potassium 4.6 mmol/L (3.5-5.1); Sodium 138 mmol/L (136-145); Total Protein 6.4 g/dL (6.4-8.2)
== END 2023-09-07 12:54 | disposition home or self-care (01) ==
LOC: NCHCN 12:53
PROVIDERS: PCP Internal Medicine; Referring Provider Internal Medicine; Visit Provider Internal Medicine
DX: C19 Malignant neoplasm of rectosigmoid junction (principal)
CPT/HCPCS: 80053; 85027; 83735

== ENCOUNTER 2024-06-21 11:52 | Outpatient (REF) | payer MEDICARE, BC, SELFPAY ==
[2024-06-21 19:52] LABS: HGB 12.1 g/dL (11.2-15.7); MCHC 32.7 % (32.0-36.0); MCV 104 fL (80-95); MPV 10.5 fL (8.0-11.0); Platelet Count 133 10^3/uL (130-400); RBC 3.56 10^6/uL (3.93-5.22); RDW 14.2 % (11.7-14.6); RDW-SD 55.1 fL; WBC 4.77 10^3/uL (4.4-10.8)
[2024-06-21 20:00] LABS: ALT 36 U/L (14-59); AST 43 U/L (15-37); Albumin 3.5 g/dL (3.4-5.0); Alkaline Phosphatase 114 U/L (46-116); Anion Gap 9.9 mmol/L (3-11); BUN 21 mg/dL (7-18); Bilirubin, Total 2.14 mg/dL (0.2-1.0); CO2 27.1 mmol/L (21.0-32.0); CREATININE 0.9 mg/dL (0.55-1.02); Calcium 9.6 mg/dL (8.5-10.1); Chloride 107 mmol/L (98-107); Estimated GFR 65.44 (mL/min/1.73m2); Glucose 99 mg/dL (74-106); Potassium 4.5 mmol/L (3.5-5.1); Sodium 144 mmol/L (136-145); Total Protein 6.6 g/dL (6.4-8.2)
== END 2024-06-21 11:53 | disposition home or self-care (01) ==
LOC: NCHCN 11:52
PROVIDERS: PCP Internal Medicine; Visit Provider Internal Medicine
DX: K74.60 Unspecified cirrhosis of liver (principal)
CPT/HCPCS: 80053; 85027

== ENCOUNTER → 2024-06-26 12:45 | Outpatient (BNVA) | payer MEDICARE, BC, SELFPAY | PROVIDERS: PCP Internal Medicine; Referring Provider Internal Medicine; Visit Provider Psychiatry & Neurology Neurology | DX: M48.061 Spinal stenosis, lumbar region without neurogenic claudication (principal); M79.605 Pain in left leg; G62.9 Polyneuropathy, unspecified | CPT/HCPCS: 99205 ==

== ENCOUNTER 2025-05-01 15:28 | Outpatient (REF) | payer MEDICARE, BC, SELFPAY ==
[2025-05-01 20:48] LABS: Cholesterol 142 mg/dL (<200); HDL Cholesterol 56 mg/dL (>40)
== END 2025-05-01 15:29 | disposition home or self-care (01) ==
LOC: NCHCN 15:28
PROVIDERS: PCP Internal Medicine; Visit Provider Nurse Practitioner
DX: Z13.220 Encounter for screening for lipoid disorders (principal)
CPT/HCPCS: 80061

== ENCOUNTER 2025-05-28 18:36 | Outpatient (REF) | payer MEDICARE, BC, SELFPAY | END 2025-05-28 18:37 | disposition home or self-care (01) | LOC: NCHCN 18:36 | PROVIDERS: PCP Internal Medicine; Referring Provider Nurse Practitioner Family; Visit Provider Nurse Practitioner | DX: L72.0 Epidermal cyst (principal) | CPT/HCPCS: 88305 ==